=== PATIENT | female | born 1995 | race Caucasian/White ===

== ENCOUNTER → 2017-05-23 | Outpatient (CLI) | payer OTHER ==
[~2017-05-23] MED LIST: EPP3/2 IM; ETON1IMP2
== END | disposition home or self-care (01) ==
LOC: C.PAPS 11:14
PROVIDERS: ATTEND Family Medicine
DX: Z12.72 Encounter for screening for malignant neoplasm of vagina (principal)

== ENCOUNTER → 2017-05-23 | Outpatient (CLI) | payer OTHER | END | disposition home or self-care (01) | LOC: C.LABSPEC 11:54 | PROVIDERS: ATTEND Family Medicine | DX: Z11.3 Encounter for screening for infections with a predominantly sexual mode of transmission (principal) ==

== ENCOUNTER → 2017-06-09 | Outpatient (CLI) | payer OTHER ==
[~2017-06-09] MED LIST changes: +ACET300T2 PO; +ELAS-1213 EX
[2017-06-09 18:59] LABS: HEMATOCRIT 46.4 % (37-47); HEMOGLOBIN 16.4 g/dL (12.0-16.0); MEAN CELL VOLUME 92.1 fL (80-100); MEAN CORPUSCULAR HEMOGLOBIN 32.5 pg (25-34); MEAN CORPUSCULAR HGB CONC 35.3 g/dl (32-36); MEAN PLATELET VOLUME 9.6 fL (7.4-10.4); PLATELET COUNT 305 K/uL (130-400); RED CELL DISTRIBUTION WIDTH CV 12.2 % (11.5-14.5); RED CELL DISTRIBUTION WIDTH SD 41.2 fL (36.4-46.3); WHITE BLOOD COUNT 6.08 K/uL (4.8-10.8)
[2017-06-09 19:11] LABS: PTT PATIENT 27.3 SECONDS (21.0-31.0)
== END | disposition home or self-care (01) ==
LOC: C.LAB 17:14
PROVIDERS: ATTEND Podiatrist Foot & Ankle Surgery
DX: Z01.812 Encounter for preprocedural laboratory examination (principal)

== ENCOUNTER → 2017-06-13 | Day surgery (SDC) | payer OTHER ==
[2017-05-24 13:23] VITALS: Ht 162.6 cm; Wt 59.1 kg
[~2017-06-13] VITALS: Ht 162.6 cm; Wt 59.1 kg
[~2017-06-13] MED LIST changes: +ACETAMINOPHEN/CODEINE 300/30MG TAB PO PRN; +ATROPINE SULFATE 0.1 MG/ML 5ML SYR IV PRN; +CEFAZOLIN 1000MG IV PUSH 7.5 ML IV SCH; +EpHEDrine SULFATE INJ 50 MG/ML AMP IV PRN; +FENTANYL CITRATE INJ 50 MCG/1 ML 2 ML VIAL IV PRN; +FENTANYL CITRATE INJ 50 MCG/1 ML 2 ML VIAL ONE; +HYDROCODONE/ACETAMIN 5/325MG TAB PO PRN; +LACTATED RINGER'S 1000ML 1,000 ML IV SCH; +LIDOCAINE HCL 1% 20 ML VIAL ONE; +LIDOCAINE HCL 2% 2 ML VIAL (20MG/ML) ONE; +LIDOCAINE/EPINEPHRINE 1% 20 ML VIAL ONE; +METOCLOPRAMIDE HCL INJ 5 MG/ML 2 ML VIAL IV PRN; +MIDAZOLAM HCL 1 MG/ML 2ML VIAL ONE; +ONDANSETRON INJ 2 MG/ML 2 ML VIAL IV PRN; +PROPOFOL IV EMULSION 10 MG/ML 20 ML VIAL IV ONE; +SILVER SULFADIAZINE 1% CR 50 GM JAR EXT ONE; +SODIUM CHLORIDE 0.9% 1000ML 1,000 ML IV SCH
--- NOTE | 2017-06-13 08:26 | Discharge Instructions-SurgCtr ---
Discharge Instructions Date of Service Jun 13, 2017. Visit Reason for Visit: Bilateral Feet Plantar Wart, Pain Discharge Discharge Diagnosis / Problem: Painful verruca b/l Discharge Goals Goal(s): Decrease discomfort, Improve function Activity Recommendations Activity Limitations: as noted below Lifting Limitations: gradually increase as tolerated Exercise/Sports Limitations: rest today Shower/Bathe: keep incision dry Weight bear as tolerated. Rest, ice, elevate. Anesthesia . Post Anesthesia Instructions: If you have had General Anesthesia or IV Sedation: * Do not drive today. * Resume driving when surgeon permits. * Do not make important decisions or sign legal documents today. * Call surgeon for: 1. Temperature elevations greater than 101 degrees F. 2. Uncontrollable pain. 3. Excessive bleeding. 4. Persistent nausea and vomiting. 5. Medication intolerance (nausea, vomiting or rash). * For nausea and vomiting use only clear liquids such as: tea, soda, bouillon until nausea subsides, then gradually increase diet as tolerated. * If you have any concerns or questions, call your surgeon's office. If physician is unavailable and it is an emergency, call 911 or go to the nearest emergency room. . Diet Recommendations Home Diet: resume previous diet Procedures Procedures Performed: Excision painful verruca b/l Pending Studies Studies pending at discharge: no Medical Emergencies . Who to Call and When: Medical Emergencies: If at any time you feel your situation is an emergency, please call 911 immediately. . Non-Emergent Contact Non-Emergency issues call your: Primary Care Provider, Specialist Call Non-Emergent contact if: you have a fever, your pain is not controlled, your pain is worsening, wound has increased drainage, wound has increased redness, wound has increased pain . . "Provider Documentation" section prepared by Carlton Harmon. . [place] Drug Monitoring Program Search Results: no issues identified
--- NOTE | 2017-06-13 14:46 | [facility] Post Operative Brief Note ---
Immediate Operative Summary Operative Date Jun 13, 2017. Pre-Operative Diagnosis Bilateral Feet Plantar Wart Post-Operative Diagnosis Same Procedure(s) Performed Bilateral Surgical Treatment and Excision of Plantar Verruca using CO2 Laser Ablation Surgeon Dr. Marcelle Harmon Accredited Farm Manager Surgeon(s) None Estimated Blood Loss 10 ml Findings Consistent with Post-Op Diagnosis Specimens None Drains None Anesthesia Type MAC Complication(s) none Disposition Accompanied Pt To Recovery: no
[2017-06-13 14:51] VITALS: TEMP 36.3
[2017-06-13 15:12] VITALS: BP 104/77; PULSE 80; O2SAT 98
--- NOTE | 2017-06-13 15:16 | Anesthesia Progress Nt - [facility] ---
Anesthesia Post Op Note Date & Time Jun 13, 2017 at 15:16 Vital Signs Pain Intensity: 0 Vital Signs Past 12 Hours Date Time Temp Pulse Resp B/P (MAP) Pulse Ox O2 Delivery O2 Flow Rate FiO2 06/13/17 15:12 80 16 104/77 (86) 98 Room Air 06/13/17 14:51 36.3 71 16 122/81 (95) 100 Room Air 06/13/17 12:54 36.7 83 14 118/86 (97) 98 Room Air Notes Mental Status: alert / awake / arousable, participated in evaluation Pt Amnestic to Procedure: Yes Nausea / Vomiting: adequately controlled Pain: adequately controlled Airway Patency, RR, SpO2: stable & adequate BP & HR: stable & adequate Hydration State: stable & adequate Anesthetic Complications: no major complications apparent
--- NOTE | 2017-06-13 18:01 | [facility] Operative Report ---
Operative Report Operative Date Jun 13, 2017. Pre-Operative Diagnosis Bilateral Feet Plantar Wart Post-Operative Diagnosis Same Procedure(s) Performed Bilateral Surgical Treatment and Excision of Plantar Verruca using CO2 Laser Ablation Surgeon Dr. Marcelle Harmon Ladle Builder Surgeon(s) None Estimated Blood Loss 10 CC Specimens None Drains None Anesthesia Type MAC Complication(s) none Disposition no Indications This is a very pleasant 21 year old female with history of painful plantar verruca to plantar and dorsal right and left foot. Clinical examination demonstrates obstruction of skin lines, pinpoint bleeding and pain with lateral compression. Patient has attempted acid intervention which has failed. The perioperative indications, planned procedure, possible benefits, risks, complications, and anticipated healing time and management were discussed in detail with the patient. She understands and elects to proceed with surgery at this time. All consents have been signed. No guarantees were made. All questions have been answered to the patient's satisfaction. Medical clearance has been obtained by the patients primary care physician. Description of Procedure The patient was transported to the operating room via cart and placed on the operating room table in the supine position. Final verification of the patient, surgery, and limb designation was performed via the time-out procedure. MAC anesthesia was initiated by the anesthesia team. The preoperative injection consisting of a 10 cc 1% lidocaine plain was administered about the operative sites of the right and left foot. The left and right foot were then scrubbed, prepped, and draped in the usual aseptic manner. The procedure then began as follows: Using the CO2 laser, the verrucous lesions to the dorsal 5th digit (4mm x 4mm x 1mm), distal 2nd digit (3mm x 3mm x 1mm), and distal hallux (3mm x 4mm 1mm) were lasered on the right foot. Again using the CO2 laser, the verrucous lesions to the dorsal 2nd digit (4mm x 3mm x 2mm) and dorsal 4th digit (5mm x 4mm x 2mm) left foot were lasered on the left foot. Next, a #10 blade was used to excise the lesions down to the level of epidermis without penetrating the dermis. Clear margins of approximately 2mm were obtained around all lesions. At this time, post operative dressing consisting of Silvadene ointment, telfa, 4x4 gauze, abd pad and kerlix were applied to the right and then to the left foot. Patient tolerated the anesthesia and procedure very well, was transferred to the PACU with all vital signs stable and brisk capillary refill time noted in all toes of the left and right foot. Patient's intraoperative and postoperative disposition was discussed with the family in the postoperative consultation area. I attest to the content of the Intraoperative Record and any orders documented therein. Any exceptions are noted below.
--- NOTE | 2017-06-16 12:30 | EDITING REQUIRED CODING QUERY ---
CODING QUERY Dr. Harmon Date of Service: 06-13-17 To promote full compliance with coding requirements relating to patient care, provider participation is requested in all cases of medical biller/coder uncertainty. Please assist us with the question(s) below: Coding Question(s): Please provide the number of verruca that were lasered. Thank you. ( ) Up to 14 lesions ( ) 15 or more lesions Physician's Response(s): Thank you Kim Acosta Principal Diagnosis: "_that condition established after study, to be chiefly responsible for occasioning the admission of the patient to the hospital for care." Co-Existing Principal Diagnosis: "_when two or more diagnoses equally meet the criteria for principal diagnosis as determined by the circumstances of admission, diagnostic work up, and/or therapy provided, and the Alphabetic Index, Tabular List, or another coding guideline does not provide sequencing direction, any one of the diagnoses may be sequenced first." "When the physician has documented what appears to be a current diagnosis in the body of the record, but has not included the diagnosis in the final diagnostic statement, the physician should be asked whether the diagnosis should be added." (Source [facility] 2 QTR90. p3-4)
== END | disposition home or self-care (01) ==
LOC: X.SURG 12:40
PROVIDERS: ATTEND Podiatrist Foot & Ankle Surgery
DX: B07.0 Plantar wart (principal)